=== PATIENT | male | born 1990 | race Two or more races ===

== ENCOUNTER 2020-01-11 20:40 | Emergency (ER) | payer MEDICAID ==
[~2020-01-11] VITALS: Ht 170.2 cm; Wt 123.0 kg
[~2020-01-11 20:40] MED LIST: EPIN0.3P3 IM
[2020-01-11] MEDS ORDERED: EPINEPHrine 1:1,000 [1 MG/ML] AMP ONE (20:44)
[2020-01-11] MEDS ORDERED: SODIUM CHLORIDE 0.9% 1,000 ML IV ONE (20:45)
[2020-01-11] MEDS ORDERED: FAMOTIDINE 10 MG/ML 2 ML VIAL IVP ONE (20:45)
[2020-01-11] MEDS ORDERED: DiphenhydrAMINE HCL 50 MG/ML VIAL IVP ONE (20:45)
[2020-01-11] MEDS ORDERED: MethylPREDNISolone SOD SUCC 125 MG/2 ML VIAL IVP ONE (20:45)
[2020-01-11] MEDS ORDERED: EPINEPHrine 1:1,000 [1 MG/ML] AMP IM ONE (21:15)
[2020-01-11 23:31] VITALS: BP 132/59
== END 2020-01-12 00:29 | disposition home or self-care (01) ==
LOC: EMS 20:40
DX: T78.2XXA Anaphylactic shock, unspecified, initial encounter (principal); T63.441A Toxic effect of venom of bees, accidental (unintentional), initial encounter; R06.02 Shortness of breath; Z91.030 Bee allergy status; X58.XXXA Exposure to other specified factors, initial encounter
CPT/HCPCS: 96374; 96375; 99291; J0171; J1200; J2930; J3490; J7030